=== PATIENT | male | born 1985 | race Caucasian/White ===

== ENCOUNTER 2016-12-18 21:13 | Emergency (ER) | payer MEDICAID ==
[~2016-12-18] VITALS: Ht 154.9 cm; Wt 59.0 kg
[2016-12-18 21:17] VITALS: BP 131/73
[2016-12-18] MEDS ORDERED: IBUPROFEN 200 MG TABLET ONE (21:48)
[2016-12-18] MEDS: IBUPROFEN 600 MG TABLET PO ONE (21:55)
== END 2016-12-18 23:37 | disposition home or self-care (01) ==
LOC: ER 21:15
DX: M79.671 Pain in right foot (principal)
CPT/HCPCS: 73610; 73630; 99284; A4606; Z7610